=== PATIENT | female | born 1980 | race Asian ===

== ENCOUNTER → 2016-07-13 | Outpatient (CLI) | payer OTHER ==
[2016-07-13 15:43] LABS: BASO % 0.1 %; BASO ABS # 0.01 K/uL (0-0.2); COMPLETE YES; EOS % 2.6 %; HEMATOCRIT 36.6 % (37-47); IG% 0.3 %; LYMPH ABS # 1.66 K/uL (1.2-3.4); MEAN CELL VOLUME 87.6 fL (80-100); MEAN CORPUSCULAR HEMOGLOBIN 29.7 pg (25-34); MEAN CORPUSCULAR HGB CONC 33.9 g/dl (32-36); MEAN PLATELET VOLUME 9.5 fL (7.4-10.4); MONO % 5.3 %; NEUT % 69.7 %; PLATELET COUNT 232 K/uL (130-400); RED BLOOD COUNT 4.18 M/uL (4.2-5.4); WHITE BLOOD COUNT 7.55 K/uL (4.8-10.8)
== END | disposition home or self-care (01) ==
LOC: C.LAB1850 14:51
PROVIDERS: ATTEND Obstetrics & Gynecology
DX: O09.00 Supervision of pregnancy with history of infertility, unspecified trimester (principal)

== ENCOUNTER → 2016-08-10 | Outpatient (CLI) | payer OTHER ==
[2016-08-10 17:14] LABS: GTGD 50 Grams
[2016-08-14 17:32] LABS: AFP CONCENTRATION 17.6 NG/ML; AFP MULTIPLE OF MEDIAN 0.48; AFPTS GESTATIONAL AGE 16.1 WEEKS; AFPTS INSULIN DEP DIABETIC? NO; AFPTS MATERNAL WT 126 LBS; HISTORY OF NTD NO; REPEAT SAMPLE? NO
== END | disposition home or self-care (01) ==
LOC: C.LAB1850 11:24
PROVIDERS: ATTEND Obstetrics & Gynecology
DX: O09.522 Supervision of elderly multigravida, second trimester (principal)

== ENCOUNTER → 2016-10-31 | Outpatient (CLI) | payer OTHER | END | disposition home or self-care (01) | LOC: C.LAB1850 15:30 | PROVIDERS: ATTEND Dermatology | DX: L71.9 Rosacea, unspecified (principal) ==

== ENCOUNTER → 2016-11-02 | Outpatient (CLI) | payer OTHER ==
[2016-11-02 13:22] LABS: HEMATOCRIT 33.5 % (37-47)
[2016-11-02 15:13] LABS: GTGD 50 Grams
== END | disposition home or self-care (01) ==
LOC: C.LAB1850 11:16
PROVIDERS: ATTEND Obstetrics & Gynecology
DX: O09.523 Supervision of elderly multigravida, third trimester (principal)

== ENCOUNTER → 2016-11-02 | Outpatient (CLI) | payer OTHER ==
[2016-11-02 15:28] LABS: URINE APPEARANCE CLEAR (CLEAR); URINE BILIRUBIN NEG (NEG); URINE COLOR YELLOW; URINE EPITHELIAL CELL AUTO >30 /lpf (0-5); URINE NITRITE NEG (NEG); URINE SPECIFIC GRAVITY 1.007 (1.000-1.030); UROBILINOGEN NEG (NEG)
[2016-11-02 15:31] LABS: MANUAL MICROSCOPIC REQUIRED? NO; REVIEW REQ? NO
== END | disposition home or self-care (01) ==
LOC: C.LABSPEC 13:49
PROVIDERS: ATTEND Obstetrics & Gynecology
DX: O09.523 Supervision of elderly multigravida, third trimester (principal)

== ENCOUNTER → 2016-11-30 | Outpatient (CLI) | payer OTHER ==
[2016-11-30 19:14] LABS: URINE APPEARANCE CLEAR (CLEAR); URINE BILIRUBIN NEG (NEG); URINE COLOR YELLOW; URINE EPITHELIAL CELL AUTO >30 /lpf (0-5); URINE NITRITE NEG (NEG); URINE SPECIFIC GRAVITY 1.011 (1.000-1.030); UROBILINOGEN NEG (NEG)
[2016-11-30 19:39] LABS: MANUAL MICROSCOPIC REQUIRED? NO; REVIEW REQ? NO
== END | disposition home or self-care (01) ==
LOC: C.LABSPEC 17:53
PROVIDERS: ATTEND Obstetrics & Gynecology
DX: R39.9 Unspecified symptoms and signs involving the genitourinary system (principal)

== ENCOUNTER → 2016-12-14 | Outpatient (CLI) | payer OTHER | END | disposition home or self-care (01) | LOC: C.LABSPEC 13:32 | PROVIDERS: ATTEND Obstetrics & Gynecology | DX: N76.0 Acute vaginitis (principal) ==

== ENCOUNTER → 2016-12-28 | Outpatient (CLI) | payer OTHER | END | disposition home or self-care (01) | LOC: C.LABSPEC 14:35 | PROVIDERS: ATTEND Obstetrics & Gynecology | DX: O09.523 Supervision of elderly multigravida, third trimester (principal) ==

== ENCOUNTER 2017-01-23 21:08 | Inpatient (IN) | payer OTHER ==
[~2017-01-23] VITALS: Ht 160 cm; Wt 70.8 kg
[2017-01-23] MEDS ORDERED: LACTATED RINGER'S 1000ML 1,000 ML IV SCH (21:28)
[2017-01-23] MEDS ORDERED: PATIENT'S ALLERGY INFO NEEDS ENTERED SCH (21:45)
[2017-01-23] MEDS ORDERED: EpHEDrine SULFATE INJ 50 MG/ML AMP ONE (21:50)
[2017-01-23] MEDS ORDERED: BUPIVACAINE 0.25% 30 ML VIAL ONE (21:50)
[2017-01-23] MEDS ORDERED: FENTANYL CITRATE INJ 50 MCG/1 ML 2 ML VIAL ONE (21:51)
[2017-01-23] MEDS ORDERED: FENTANYL 2MCG/ML ROPIV 1.25MG/ML 100ML BAG EPI ONE (21:51)
[2017-01-23 22:18] LABS: HEMATOCRIT 37.1 % (37-47); MEAN CELL VOLUME 89.4 fL (80-100); MEAN CORPUSCULAR HEMOGLOBIN 29.4 pg (25-34); MEAN CORPUSCULAR HGB CONC 32.9 g/dl (32-36); MEAN PLATELET VOLUME 9.4 fL (7.4-10.4); PLATELET COUNT 211 K/uL (130-400); RED BLOOD COUNT 4.15 M/uL (4.2-5.4); WHITE BLOOD COUNT 7.38 K/uL (4.8-10.8)
[2017-01-23] MEDS: LACTATED RINGER'S 1000ML 1,000 ML IV PRN (22:45)
[2017-01-23] MEDS ORDERED: NALOXONE HCL INJ 1 MG in SODIUM CHLORIDE 0.9% 1000ML 1,000 ML IV PRN (22:59)
[2017-01-23] MEDS ORDERED: LACTATED RINGER'S 1000ML 500 ML IV PRN (22:59)
[2017-01-23] MEDS ORDERED: EpHEDrine SULFATE INJ 50 MG/ML AMP IV PRN (23:00)
[2017-01-23] MEDS ORDERED: NALBUPHINE HCL INJ 10 MG/ML AMP IV PRN (23:00)
[2017-01-23] MEDS ORDERED: NALOXONE HCL INJ 0.4 MG/1 ML VIAL/CARP IV PRN (23:00)
[2017-01-23] MEDS ORDERED: DiphenhydrAMINE HCL 50 MG/ML VIAL IV PRN (23:00)
[2017-01-23 23:15] VITALS: Ht 160 cm; Wt 70.8 kg
[2017-01-24] MEDS: FENTANYL 2MCG/ML ROPIV 1.25MG/ML 100ML BAG EPI PRN ×2 (07:03→08:57)
[2017-01-24] MEDS: LACTATED RINGER'S 1000ML 1,000 ML IV PRN (08:58)
[2017-01-24] MEDS ORDERED: OXYTOCIN 30 UNITS/500ML NSS IV PRN ×2 (11:00→13:00)
[2017-01-24] MEDS ORDERED: OXYCODONE/ACETAMINOPHEN 5-325 TAB PO PRN (13:00)
[2017-01-24] MEDS ORDERED: BENZOCAINE 20% AER SPR 82.5 GM CAN EXT PRN (13:00)
[2017-01-24] MEDS ORDERED: HYDROCORTISONE ACETATE 25 MG SUPP PR PRN (13:00)
[2017-01-24] MEDS ORDERED: LANOLIN OINT EXT PRN ×2 (13:00)
[2017-01-24] MEDS ORDERED: SUPERCREAM 0.870 % 15GM JAR EXT PRN (13:00)
[2017-01-24] MEDS ORDERED: ACETAMINOPHEN 325 MG TAB PO PRN (13:00)
--- NOTE | 2017-01-24 13:06 | Vaginal Delivery Summary ---
Vaginal Delivery Summary 36yo admitted in labor. She reached complete dilation and initially pushed ineffectively for 30min, after which we allowed her to labor down several hours and ultimately started pitocin as her contractions were spacing apart. She then resumed pushing and was very effective. I was called for delivery. She delivered the head of her in the ASIF position with the R arm as a compound presentation. There was no nuchal cord. The shoulders delivered without difficulty followed by the body. The cord was doubly clamped and cut by the FOB. Infant cried and moved all four extremities immediately after delivery. Placenta delivered spontaneously and was intact. Umbilical cord was removed and packaged for the patient to take home at her request. 2nd degree perineal laceration repaired in the usual fashion with vicryl suture. At completion of delivery the fundus is firm and lochia is minimal. Mom and both in good condition having tolerated delivery well.
[2017-01-24] MEDS ORDERED: LACTATED RINGER'S 1000ML 1,000 ML IV SCH (14:00)
--- NOTE | 2017-01-24 14:28 | Anesthesia Procedure Note ---
Anesthesia Epidural Removal Nt Date & Time Jan 24, 2017 at 14:27 Notes Mental Status: alert / awake / arousable, participated in evaluation Nausea / Vomiting: adequately controlled Pain: adequately controlled Airway Patency, RR, SpO2: stable & adequate BP & HR: stable & adequate Hydration State: stable & adequate Neuraxial Anesthesia: was administered Anesthetic Complications: no major complications apparent, pt satisfied with anesthetic care Epidural: removed without complications, with tip intact
[2017-01-24 15:05] VITALS: BP 114/72; PULSE 90; TEMP 37; O2SAT 96
[2017-01-24] MEDS: IBUPROFEN 600 MG TAB PO PRN ×2 (15:28→20:07)
[2017-01-24] MEDS: DOCUSATE SODIUM 100 MG CAP PO SCH (20:07)
[2017-01-24 20:10] VITALS: BP 116/70; PULSE 73; TEMP 36.8; O2SAT 97
[2017-01-24 23:45] VITALS: BP 97/61; PULSE 66; TEMP 36.4; O2SAT 97
[2017-01-25 04:45] VITALS: BP 111/72; PULSE 65; TEMP 36.6; O2SAT 98
[2017-01-25 06:08] LABS: HEMATOCRIT 33.2 % (37-47)
--- NOTE | 2017-01-25 06:48 | OB/GYN Progress Note ---
PROTECTION AGENT Progress Note Date of Service Jan 25, 2017. Subjective conversation w/ patient, physical exam, chart review, lab review Ambulation: ambulating normally Voiding: no voiding problems Passing Gas: Yes Diet Tolerance: Regular Diet Lochia: Small Feeding Type: Breast Feeding Pain: Some low abd pain/soreness Notes: Pt up and walking about this morning comfortably. Review of Systems Constitutional: No fever, No chills Respiratory: No cough, No shortness of breath Cardiac: No chest pain Abdomen: No nausea, No vomiting, No diarrhea Female : No dysuria Objective Vital Signs Date Time Temp Pulse Resp B/P (MAP) Pulse Ox O2 Delivery O2 Flow Rate FiO2 01/25/17 04:45 36.6 65 18 111/72 (85) 98 Room Air 01/24/17 23:45 36.4 66 18 97/61 (73) 97 Room Air 01/24/17 23:45 97 Room Air 01/24/17 20:10 36.8 73 20 116/70 (85) 97 Room Air 01/24/17 15:05 37.0 90 20 114/72 (86) 96 Room Air 01/24/17 15:05 96 Room Air Physical Exam General Appearance: WELL-APPEARING, WD/WN, NO APPARENT DISTRESS Respiratory/Chest: lungs clear, normal breath sounds Cardiovascular: regular rate, rhythm Abdomen: normal bowel sounds, non tender, soft Fundus: Firm, Non-Tender, Relation to Umbilicus (at umbilicus) Extremities: normal range of motion, non-tender, no pedal edema, no calf tenderness Laboratory Results Last 24 Hours Test 01/25/17 05:50 Hemoglobin 10.7 g/dL Hematocrit 33.2 % Assessment and Plan Post- Day Number: 1 Continue Routine Care: 36yo s/p , now PPD #1. - Blood type A pos. GBS negative. Rubella immune. - Vital signs reviewed and stable. - Pain controlled with motrin. - No leg swelling or tenderness on calf palpation. Encourage ambulation. - Encourage breast feeding. - Hemoglobin preop 12.2, post-delivery this am pending. Bleeding has improved. Continue to monitor clinically. - Continue routine post-vaginal delivery care. - Pt agreed with above plan, all current questions answered. Faustino Bah MD, PGY1 Award Clerk Physician Supervision Note: I interviewed and examined the patient. Discussed with Dr. Bah and agree with findings and plan as documented in the note. Any exceptions or clarifications are listed here: [None] Documented By: Bernie Briggs Resident Tracking Resident Involvement: Resident Care Provided Care Provided: OB Delivery (morning rounds)
[2017-01-25 08:00] VITALS: BP 125/79; PULSE 77; TEMP 36.4
[2017-01-25] MEDS: DOCUSATE SODIUM 100 MG CAP PO SCH ×2 (08:12→20:04)
[2017-01-25] MEDS: PRENATAL VITAMIN TAB PO SCH (08:12)
[2017-01-25] MEDS: IBUPROFEN 600 MG TAB PO PRN ×3 (08:13→20:09)
[2017-01-25] MEDS: FERROUS SULFATE 325 MG TAB PO SCH (08:13)
[2017-01-25] MEDS ORDERED: DIPHTHERIA/TETANUS/PERTUSSIS 0.5 ML SYR/VIAL IM. ONE (09:00)
[2017-01-25 11:30] VITALS: BP 109/70; PULSE 78; TEMP 36.8
[2017-01-25 15:05] VITALS: BP 119/76; PULSE 76; TEMP 36.7
[2017-01-25 23:40] VITALS: BP 108/72; PULSE 70; TEMP 36.7; O2SAT 95
--- NOTE | 2017-01-26 07:01 | OB/GYN Progress Note ---
TEACHERS AIDE Progress Note Date of Service Jan 26, 2017. Subjective conversation w/ patient, physical exam, chart review, lab review Ambulation: ambulating normally Voiding: no voiding problems Passing Gas: Yes Diet Tolerance: Regular Diet Lochia: Small Feeding Type: Breast Feeding Notes: Says has a backache as well as some hemorrhoidal & suture soreness. Review of Systems Constitutional: No fever, No chills Respiratory: No cough, No shortness of breath Cardiac: No chest pain Abdomen: No nausea, No vomiting, No diarrhea Female : No dysuria Objective Vital Signs Date Time Temp Pulse Resp B/P (MAP) Pulse Ox O2 Delivery O2 Flow Rate FiO2 01/25/17 23:40 36.7 70 18 108/72 (84) 95 Room Air 01/25/17 23:40 Room Air 01/25/17 15:05 Room Air 01/25/17 15:05 36.7 76 18 119/76 (90) Room Air 01/25/17 11:30 36.8 78 16 109/70 (83) Room Air 01/25/17 08:00 36.4 77 18 125/79 (94) Room Air 01/25/17 08:00 Room Air Physical Exam General Appearance: WELL-APPEARING, WD/WN, NO APPARENT DISTRESS Respiratory/Chest: lungs clear, normal breath sounds Cardiovascular: regular rate, rhythm Abdomen: normal bowel sounds, non tender, soft Fundus: Firm, Non-Tender, Relation to Umbilicus (approx two down) Extremities: normal range of motion, non-tender, no pedal edema, no calf tenderness Low back no rashes. Up and walking about without difficulty. Assessment and Plan Post- Day Number: 2 Continue Routine Care: 36yo s/p , now PPD #2. - Blood type A pos. GBS negative. Rubella immune. - Vital signs reviewed and stable. - Pain controlled with motrin. Discussed backache and hemorrhoidal care. - No leg swelling or tenderness on calf palpation. Encourage ambulation. - Encourage breast feeding. - Hemoglobin prepartum 12.2, post-delivery 10.7. Continue to monitor clinically. - Continue routine post-vaginal delivery care. - Pt agreed with above plan, all current questions answered. Faustino Bah MD, PGY1 Veterans Service Representative Physician Supervision Note: I interviewed and examined the patient. Discussed with Dr. Handbury and agree with findings and plan as documented in the note. Any exceptions or clarifications are listed here: Doing well. Plan d/c. Instructions given. Documented By: Liliana Hill Resident Tracking Resident Involvement: Resident Care Provided Care Provided: OB Delivery (morning rounds)
--- NOTE | 2017-01-26 07:02 | Discharge Instructions ---
Discharge Instructions Date of Service Jan 26, 2017. Admission Reason for Admission: Check Labor Discharge Discharge Diagnosis / Problem: Recovery from vaginal delivery Discharge Goals Goal(s): Routine recovery after delivery Medications Continue Dispensed Medications: supercream, dermaplast, tucks, lansinoh Activity Recommendations Activity Limitations: per Instructions/Follow-up section . Instructions / Follow-Up Instructions / Follow-Up ACTIVITY RECOMMENDATIONS: * Gradual return to full activity over the next 2-3 weeks. * No lifting - nothing heavier than baby over the next 2-3 weeks. * Do not engage in vigorous exercise, sexual activity or sports until cleared by your physician. * Do not drive or operate any motorized equipment until cleared by your physician. * You may shower/bathe daily. MEDICATIONS: For discomfort or pain, you may use Acetaminophen (Tylenol), Ibuprofen (Advil), or Naproxen (Aleve) following the package directions. For constipation you may use Colace following the package directions. BREAST CARE: If you are not breast feeding: * Wear a supportive bra 24 hours a day for one to two weeks. * Avoid stimulating your breasts and nipples as much as possible during the first few weeks after delivery. * When taking a shower, have the warm water hit your back, not breasts. * When your breasts feel full, apply ice packs. Usually three to four times a day helps ease the discomfort. * Take a mild pain medication (Tylenol / Motrin) when you are uncomfortable. If breast feeding: * Use breast milk to lubricate nipples. Lansinoh cream may be used for sore nipples. You do not need to remove cream prior to breast feeding. If using a different brand of cream, check the label for directions regarding removal of cream prior to nursing. * Wear a supportive bra. * If having problems with breasts or breast feeding, call a validation consultant or your health care provider. EPISIOTOMY CARE: After delivery, if you have an episiotomy (stitches), the following steps will ease discomfort and aid healing. * For the first 24 hours after delivery, place ice packs next to your episiotomy to help reduce swelling. * After the first 24 hour-period, sitz baths, either portable or in the tub, are suggested. A shower with a shower arm sprayed over the episiotomy may be comforting. * Janey care should be done after each voiding and bowel movement. Squirt warm water from a plastic bottle over the perineum (region of the body between the anus and urinary opening) and pat dry. * Use Dermoplast to ease discomfort. Shake container. Fossil directly over the episiotomy. Place a Tucks on a clean sanitary pad next to your episiotomy. SPECIAL CARE INSTRUCTIONS: When you are discharged from the hospital, it is important for you to follow the instructions listed below: * During the first week at home, you should be able to care for yourself and your baby. In addition, the usual light household activities are encouraged. * Limit your activities to the way you feel. Do not try to clean the house or move furniture. Be sensible. * If you actively engage in sports and have done so up until the time of your delivery, you may resume these activities as soon as you feel able. This may take up to one month or even longer. Use good judgment. * Continue to take your vitamins for at least six weeks after the of your baby. * Your diet need not be limited unless you were on a special diet before your delivery. Breast-feeding mothers need around 2500 calories per day and at least 64-80 ounces of fluid per day (8 to 10 glasses). * You should eat foods from the four major food groups. Crash diets or fad diets are to be avoided. Eating lean meats, fresh fruits and vegetables, low-fat dairy products, high fiber foods and a regular exercise program, will help you get back to your pre- weight without putting your health at risk. * Constipation is sometimes a problem after delivery. Take a mild laxative as needed. If breast feeding, Milk of Magnesia is acceptable to use. You may use a suppository or Fleets enema if no episiotomy. * A daily shower or tub bath is suggested. Be sure to thoroughly and gently dry the perineum. * A bloody vaginal discharge will usually continue until around four weeks post . A small amount of bleeding may continue for as long as six weeks. Vaginal discharge changes from the bright red bleeding after delivery to pink then brownish and finally yellowish-pink before becoming white and disappearing. * Bleeding may increase with activity. Your first period may come in 4-8 weeks. If you are breast feeding, your period may be delayed even longer. * [place] (sex) can begin whenever both you and your partner feel comfortable and do not have any form of genital infection. It is recommended that you wait at least six weeks for internal and external healing to occur. If you have questions, please talk to your health care practitioner. A condom should be used to prevent infection and . * Foreplay, gentle intercourse and lubrication is very important the first several times to prevent pain. A water-based lubricant such as K-Y jelly or Astroglide may be used. * If you have RH negative blood and your baby is RH positive, you will receive RHOGAM by injection prior to discharge. The nurse will give you a card to keep with you that has the date and place that you received RHOGAM after delivery. * During your care, you had a Rubella screen done to check for the presence of rubella antibodies in your blood. If your test was negative, you will receive a Rubella vaccine prior to discharge. This vaccine may cause a fever, soreness at the injection site and flu-like symptoms. If these symptoms persist, notify your health care practitioner. is not advised for one month after a Rubella vaccine. * Verbalizes understanding of car seat law as reviewed with patient nursing. * Car Seat hand-out given and reviewed with patient by nursing. * Shaken baby information reviewed with patient by nursing. Call you doctor if: * Heavy bleeding (saturating several pads an hour) or passing clots the size of your fist. * A fever >101 degrees F (38.3 degrees C) on two occasions four hours apart and /or chills. * Unusual pain in the pelvic or vaginal areas. * "Baby Blues" lasting longer than two weeks. If you have any questions or concerns, call your health care practitioner at . FOLLOW UP VISIT: * Please call the office at to schedule a 6 week examination. It is important you keep this appointment. It is important for you to make arrangements for either yearly or twice yearly check-ups thereafter. Current Hospital Diet Patient's current hospital diet: Regular OB Diet Discharge Diet Recommended Diet: Regular OB Diet Pending Studies Studies pending at discharge: no Medical Emergencies . Who to Call and When: Medical Emergencies: If at any time you feel your situation is an emergency, please call [phone] immediately. . Non-Emergent Contact Non-Emergency issues call your: Assistant Store Manager Operations . . "Provider Documentation" section prepared by Faustino Bah. . VTE Core Measure Inpt VTE Proph given/why not?: Treatment not indicated
[2017-01-26 07:12] VITALS: BP 123/78; PULSE 62; TEMP 36.8; O2SAT 96
[2017-01-26] MEDS: DOCUSATE SODIUM 100 MG CAP PO SCH (08:08)
[2017-01-26] MEDS: FERROUS SULFATE 325 MG TAB PO SCH (08:08)
[2017-01-26] MEDS: PRENATAL VITAMIN TAB PO SCH (08:08)
[2017-01-26] MEDS: IBUPROFEN 600 MG TAB PO PRN (08:09)
[2017-01-26 09:27] VITALS: BP_DIAS 78; PULSE 62; TEMP 36.8
== END 2017-01-26 10:50 | disposition home or self-care (01) | DRG 775 ==
LOC: C.LD 21:08 → C.OPB 21:08 → C.LD 21:30 → C.OPB 21:30 → C.OBG 01-24 15:18
PROVIDERS: ADMIT Obstetrics & Gynecology; ATTEND Obstetrics & Gynecology
PROC: 4A1HXFZ Monitoring of Products of Conception, Cardiac Rhythm, External Approach (ICD-10-PCS; principal; 2017-01-24)
PROC: 0KQM0ZZ Repair Perineum Muscle, Open Approach (ICD-10-PCS; principal; 2017-01-24)
PROC: 10E0XZZ Delivery of Products of Conception, External Approach (ICD-10-PCS; principal; 2017-01-24)
DX: O09.523 Supervision of elderly multigravida, third trimester (principal); O99.72 Diseases of the skin and subcutaneous tissue complicating childbirth; O70.1 Second degree perineal laceration during delivery; O34.13 Maternal care for benign tumor of corpus uteri, third trimester; O34.83 Maternal care for other abnormalities of pelvic organs, third trimester; L71.9 Rosacea, unspecified; O75.89 Other specified complications of labor and delivery; E28.2 Polycystic ovarian syndrome; Z3A.39 39 weeks gestation of pregnancy; Z37.0 Single live birth